=== PATIENT | male | born 1965 | race Caucasian/White ===

== ENCOUNTER → 2018-05-07 | Day surgery (SDC) | payer BC ==
[~2018-05-07] MED LIST: Acetaminophen/oxyCODONE 325-5 MG Tab PO PRN; Bupivacaine 0.5% 30 ML SDV ONE; Dexamethasone 4 MG/ML 5 ML MDV ONE; Glycopyrrolate 0.2 MG/ML SDV ONE; Lactated Ringers 1,000 ML IV SCH; Midazolam 1 MG/ML 2 ML SDV ONE; Neostigmine Methylsulfate 1 MG/ML 5 ML Syringe ONE; Octyl 2-Cyanoacrylate 1 Tube ONE; Ondansetron 4 MG/2 ML SDV ONE; Propofol 200 MG/20 ML SDV ONE; Rocuronium 10 MG/ML 10 ML Syringe ONE; Sodium Chloride 0.9% 10 ML Syringe FLUSH PRN; Sodium Chloride 0.9% 2.5 ML Syringe FLUSH PRN; Sodium Chloride 0.9% 20 ML ONE; Succinylcholine 200 MG/10 ML MDV ONE; ceFAZolin 1 GM Vial ONE; ceFAZolin 2 GM in Premix Bag 1 BAG IV ONE; ceFAZolin/Dextrose,Iso-Osmotic 2 GM/50 ML Duplex Bag IV ONE; ePHEDrine 50 MG/ML SDV ONE; fentaNYL 100 MCG/2 ML SDV IVPUSH PRN; fentaNYL 250 MCG/5 ML SDV ONE
--- NOTE | 2018-05-07 07:37 | PCM.PREANE ---
Preanesthetic Assessment - Anesthesia/Transfusion/Family Hx Anesthesia History: Prior Anesthesia Without Reaction Other Type of Anesthesia Reaction Comment: "mother had hard time coming out of anesthesia" Family History of Anesthesia Reaction: No Transfusion History: No Prior Transfusion(s) - Review of Systems General: No Symptoms Pulmonary: No Symptoms Cardiovascular: No Symptoms Gastrointestinal: No Symptoms Neurological: No Symptoms Other: Reports: None - Physical Assessment NPO Status Date: 05/06/18 Weight: 126.552 kg ASA Class: 2 Mental Status: Alert & Oriented x3 Airway Class: Mallampati = 1 Dentition: Reports: Normal Dentition, Partial (lower) ROM/Head Extension: Full Lungs: Clear to Auscultation, Normal Respiratory Effort Cardiovascular: Regular Rate, Regular Rhythm - Allergies Allergies/Adverse Reactions: Allergies Allergy/AdvReac Type Severity Reaction Status Date / Time No Known Allergies Allergy Verified 05/04/18 14:40 - Blood Blood Available: No - Anesthesia Plan Pre-Op Medication Ordered: None - Acknowledgements Anesthesia Type Planned: General Anesthesia Pt an Appropriate Candidate for the Planned Anesthesia: Yes Alternatives and Risks of Anesthesia Discussed w Pt/Guardian: Yes Pt/Guardian Understands and Agrees with Anesthesia Plan: Yes PreAnesthesia Questionnaire HEENT History: Reports: Other (See Below) Other HEENT History: wears glasses/contact Cardiovascular History: Reports: High Cholesterol, Hypertension Respiratory History: Reports: Sleep Apnea Other Respiratory History: uses CPAP Gastrointestinal History: Reports: GERD Musculoskeletal History: Reports: Fracture Other Musculoskeletal History: hx fx ankle Neurological History: Reports: None Endocrine/Metabolic History: Reports: Diabetes, Type II, Obesity/BMI 30+ - Past Surgical History Head Surgeries/Procedures: Reports: None Neurological Surgical History: Reports: Lumbar Spine Other Neurological Surgeries/Procedures: hx back surgery for ruptured disc - SUBSTANCE USE Smoking Status *Q: Current Every Day Smoker Tobacco Use Within Last Twelve Months: Cigarettes Days Per Week of Alcohol Use: 7 Number of Drinks Per Day: 3 Total Drinks Per Week: 21 Recreational Drug Use History: No - HOME MEDS Home Medications: Home Meds Omeprazole 1 tab PO DAILY 10/07/15 [History] Aspirin [[place] Aspirin] 81 mg PO DAILY 05/04/18 [History] Canagliflozin/Metformin HCl [Invokamet 150-1,000 mg Tablet] 1 tab PO BID [History] Diclofenac Potassium [Zipsor] 50 mg PO ASDIRECTED PRN 05/04/18 [History] Enalapril Maleate 20 mg PO DAILY 05/04/18 [History] Fenofibrate Nanocrystallized [Fenofibrate] 145 mg PO DAILY 05/04/18 [History] atorvaSTATin Calcium [Atorvastatin Calcium] 80 mg PO BEDTIME 05/04/18 [History] - CURRENT (IN HOUSE) MEDS Current Meds: Current Medications Lactated Ringer's (Ringers, Lactated) 1,000 mls @ 125 mls/hr IV ASDIRECTED NELY Sodium Chloride (Saline Flush) 10 ml FLUSH ASDIRECTED PRN PRN Reason: Keep Vein Open Sodium Chloride (Saline Flush) 2.5 ml FLUSH ASDIRECTED PRN PRN Reason: Keep Vein Open Discontinued Medications Bupivacaine HCl (Marcaine 0.5%) Confirm Administered Dose 30 ml .ROUTE .STK-MED ONE Stop: 05/07/18 07:19 Cefazolin Sodium (Ancef) Confirm Administered Dose 1 gm .ROUTE .STK-MED ONE Stop: 05/07/18 07:18 Cefazolin Sodium/Dextrose (Ancef) Confirm Administered Dose 2 gm IV .STK-MED ONE Stop: 05/07/18 07:09 Dexamethasone (Dexamethasone) Confirm Administered Dose 20 mg .ROUTE .STK-MED ONE Stop: 05/07/18 06:56 Fentanyl (Sublimaze) Confirm Administered Dose 250 mcg .ROUTE .STK-MED ONE Stop: 05/07/18 06:53 Cefazolin Sodium/Dextrose 2 gm (/ Premix) 50 mls @ 100 mls/hr IV ONETIME ONE Stop: 05/06/18 13:45 Lidocaine HCl (Xylocaine-Mpf 1%) Confirm Administered Dose 5 mls @ as directed .ROUTE .STK-MED ONE Stop: 05/07/18 06:56 Midazolam HCl (Versed 1 Mg/Ml) Confirm Administered Dose 2 mg .ROUTE .STK-MED ONE Stop: 05/07/18 06:53 Ondansetron HCl (Zofran) Confirm Administered Dose 4 mg .ROUTE .STK-MED ONE Stop: 05/07/18 06:56 Propofol (Diprivan 20 Ml) Confirm Administered Dose 200 mg .ROUTE .STK-MED ONE Stop: 05/07/18 06:53 Rocuronium [place] (Zemuron) Confirm Administered Dose 100 mg .ROUTE .STK-MED ONE Stop: 05/07/18 06:57 Succinylcholine Chloride (Quelicin) Confirm Administered Dose 200 mg .ROUTE .STK -MED ONE Stop: 05/07/18 06:57
--- NOTE | 2018-05-07 09:53 | PCM.POSTAN ---
POST ANESTHESIA ASSESSMENT - MENTAL STATUS Mental Status: Somnolent - RESPIRATORY Respiratory Status: Respiratory Rate WNL, Airway Patent, O2 Saturation Stable - CARDIOVASCULAR CV Status: Pulse Rate WNL, Blood Pressure Stable - GASTROINTESTINAL GI Status: No Symptoms - POST OP HYDRATION Hydration Status: Adequate & Stable - OBSERVATIONS Free Text/Narrative:: no obstructive sx on mask O2
--- NOTE | 2018-05-07 09:54 | PCM.OPNOTE ---
- General Post-Op/Procedure Note Date of Surgery/Procedure: 05/07/18 Operative Procedure(s): Umbilical hernia repair with mesh, excision umbilical skin lesion Findings: 2 cm fascial defect just left of the umbilical stalk, 1 cm skin lesion above the umbilical stalk Pre Op Diagnosis: Umbilical hernia, umbilical skin lesion Post-Op Diagnosis: same Anesthesia Technique: General LMA Primary Surgeon: Kathleen Antonio EBL in mLs: 10 Condition: Good
--- NOTE | 2018-05-07 11:04 | PCM48HPAN ---
Post Anesthesia Note - EVALUATION WITHIN 48HRS OF ANESTHETIC Vital Signs in Normal Range: Yes Patient Participated in Evaluation: Yes Respiratory Function Stable: Yes Airway Patent: Yes Cardiovascular Function Stable: Yes Hydration Status Stable: Yes Pain Control Satisfactory: Yes Nausea and Vomiting Control Satisfactory: Yes Mental Status Recovered: Yes Resp Rate: 16 - COMMENTS/OBSERVATIONS Free Text/Narrative:: discussed the importance of using cpap next 4 days. SERGO discharge instructions given
[2018-05-07 11:57] VITALS: BP 146/76
--- NOTE | 2018-05-07 16:51 | OR ---
SURGEON: ANIRUDH DOUGLAS MD DATE OF PROCEDURE: 05/07/2018 PREOPERATIVE DIAGNOSES: Umbilical hernia, umbilical skin tag. POSTOPERATIVE DIAGNOSES: Umbilical hernia, umbilical skin tag. PROCEDURES PERFORMED: Umbilical hernia repair with mesh, umbilical skin tag excision. ANESTHESIA: General LMA. FLUIDS: See anesthesia record. ESTIMATED BLOOD LOSS: 10 mL. PATHOLOGY: Hernia sac, umbilical skin tag. FINDINGS: A 2 cm fascial defect just to the left of the umbilical stalk. Hernia sac contained omentum. Approximately 1 cm umbilical skin tag. COMPLICATIONS: None. INDICATIONS: The patient is a 52-year-old male, who presents with an increasing and painful umbilical hernia. A CT scan of the abdomen showed a paraumbilical hernia containing omentum. The patient also has an umbilical skin lesion that has been present since that he would like to be removed. We discussed the pathophysiology of abdominal wall hernias. I explained to them that I may repair this primarily or with mesh depending on the size of his fascial defect. I explained the expected perioperative course as well as the risks including bleeding, infection, or damage to surrounding structures. I explained that with his smoking and diabetes, he has had increased risk of wound infection. I encouraged him to stop smoking. The patient's diabetes is under good control and given that this is symptomatic and needs to be repaired. The patient verbalized understanding and wishes to proceed. PROCEDURE IN DETAIL: The patient was brought to the OR and placed on the OR table in supine position. A time-out was completed verifying the patient's name, age, date of , allergies, and procedure to be performed. General LMA anesthesia was induced. The abdomen was prepped and draped in usual sterile fashion. The skin overlying the umbilical hernia was anesthetized with 0.5% Marcaine plain. An incision was made using a 15 blade over the top of the umbilical hernia. Cautery was used to dissect down to the level of the subcutaneous fat. I immediately encountered a large hernia sac. This was dissected free of the surrounding tissues using a Metzenbaum scissors. This dissection was carried down to the level of the fascia. I then cleared away all attachments of the hernia sac to the surrounding fascia. The hernia sac was entered and found to contain omentum. This omentum was adhered up to the hernia sac itself. The hernia sac was then excised using Metzenbaum scissors and passed off the field, labeled as hernia sac. The omentum was able to be reduced into the abdomen. The fascial defect measured 2 cm in size. The decision was made to repair this hernia with mesh. A 4.3 cm Ventralex hernia patch was brought into the field. In order to place this as an underlay, I had to sharply incise adhesions of the omentum to the underside of the fascia. Once this was adequately cleared away, I inspected my underlying tissues. No damage to the surrounding bowel was noted and the omentum appeared to be hemostatic. The mesh was then placed under the abdominal fascia and secured circumferentially with 0 Ethibond sutures. These were placed carefully to avoid incorporating any underlying omentum in the repair. Once the mesh was secured in place, I then closed the fascial defect with interrupted 0 Ethibond sutures to close tissue over the top of the mesh. I then anesthetized the fascia with 0.5% Marcaine plain. Given the size of the hernia sac, there was some redundant skin overlying the umbilicus. I sharply excised the redundant skin to allow for better closure. The subcutaneous fat was then closed with interrupted 3-0 Vicryl sutures. The skin was closed with a running 4-0 Monocryl stitch. I then turned my attention to the umbilical skin tag. This was excised sharply using a 15 blade, so that it was flush with the remainder of the umbilical tissue. I attempted to close this with 4-0 Monocryl, but was unable to close it adequately. Decision was made to use 4-0 Ethilon suture in interrupted fashion to close the defect. Four of these were placed and the wound edges were well approximated. The hernia incision was covered with Dermabond and sterile dressings were applied. The patient tolerated the procedure well and was taken to PACU in stable condition. JOELLEN MAKI /[id number] CHRISTINA
== END | disposition home or self-care (01) ==
LOC: MW.SDS 06:32
PROVIDERS: ATTEND Surgery
DX: K42.9 Umbilical hernia without obstruction or gangrene (principal); L91.8 Other hypertrophic disorders of the skin; I10 Essential (primary) hypertension; J03.90 Acute tonsillitis, unspecified; E11.9 Type 2 diabetes mellitus without complications; E78.00 Pure hypercholesterolemia, unspecified; E78.5 Hyperlipidemia, unspecified; E66.9 Obesity, unspecified; Z68.38 Body mass index [BMI] 38.0-38.9, adult; Z99.89 Dependence on other enabling machines and devices; G47.30 Sleep apnea, unspecified; F17.210 Nicotine dependence, cigarettes, uncomplicated; Z79.82 Long term (current) use of aspirin; Z79.899 Other long term (current) drug therapy
CPT/HCPCS: 49585; 82962; A9270; J0330; J0690; J1100; J2250; J2405; J3010; J7120; J2704

== ENCOUNTER 2021-10-22 10:38 | Emergency (ER) | payer OTHER ==
[2021-10-22] MEDS ORDERED: Ketorolac 15 MG/ML SDV IM ONE (10:50)
--- NOTE | 2021-10-22 11:12 | PCM.EKG ---
#1 Interpretation EKG Date: 10/22/21 Time: 11:05 Rhythm: NSR Rate (Beats/Min): 88 [place]: Normal P-Wave: Present QRS: Other (RBBB LAFB) ST-T: Normal QT: Normal Comparison: NA - No Prior EKG EKG Interpretation Comments: Sinus Rhythm with RBBB and LAFB
[2021-10-22 11:29] LABS: CORONAVIRUS COVID-19 NAA NEGATIVE (NEGATIVE); INFLUENZA A NAA NEGATIVE (NEGATIVE); INFLUENZA B NAA NEGATIVE (NEGATIVE)
[2021-10-22] MEDS ORDERED: Albuterol/Ipratropium 3.0-0.5 MG/3 ML Neb Soln NEB ONE (11:35)
[2021-10-22] MEDS ORDERED: predniSONE 20 MG Tab PO ONE (11:36)
--- NOTE | 2021-10-22 12:07 | CR ---
INDICATION: Shortness of breath. TECHNIQUE: Portable upright AP view of the chest. COMPARISON: 06/03/2012. FINDINGS: Heart size is normal. Pulmonary vasculature is unremarkable. Lungs are grossly clear. No appreciable pleural fluid on this single view study. No pneumothorax. IMPRESSION: No radiographic signs of acute thoracic disease. Dictated by Noah Kevin MD @ 10/22/2021 12:07:01 PM Dictated by: Noah Kevin MD @ 10/22/2021 12:07:06 (Electronically Signed)
--- NOTE | 2021-10-22 12:23 | EDM.PDOC ---
ED HPI GENERAL MEDICAL PROBLEM - General Chief Complaint: Respiratory Problem Stated Complaint: SHORTNESS OF BREATHE,COUGH Time Seen by Provider: 10/22/21 10:42 - History of Present Illness INITIAL COMMENTS - FREE TEXT/NARRATIVE: CHIEF COMPLAINT(S): Cough HISTORY OF PRESENT ILLNESS: This is a 55-year-old man with a past medical history of GERD, hyperlipidemia, tobacco use disorder who comes to the emergency department with a chief complaint of cough. Patient states that he is presenting to the emergency department for a cough. He states that it has been going on for the last couple of weeks. He states that he had fevers and chills, body aches all of which have resolved but he has this nagging cough that does not resolve. He states it is productive of sputum but denies any fever or chills. He denies any history of COPD or asthma. He states he has has a history of bronchitis and does have an albuterol treatment at home. He has not yet tried 1 of those. He states that he is not vaccinated. He denies any chest pain, lower extremity edema, recent travel, recent surgery or prior history of DVT or PE. REVIEW OF SYSTEMS: Constitutional: Denies fever, chills. Eyes: Denies eye pain Ears, Nose, Mouth, & Throat: Denies earache Cardiovascular: Denies chest pain Respiratory: Positive for cough which is productive. Denies shortness of breath Gastrointestinal: Denies Nausea, vomiting, diarrhea, hematochezia. Genitourinary: Denies hematuria Skin:Denies a rash MSK: Denies joint pain Neurological: Denies blurred vision Psychiatric: Denies depression PAST MEDICAL HISTORY: As per history of present illness and as reviewed below otherwise noncontributory. SURGICAL HISTORY: As per history of present illness and as reviewed below otherwise noncontributory. SOCIAL HISTORY: As per history of present illness and as reviewed below otherwise noncontributory. FAMILY HISTORY: As per history of present illness and as reviewed below otherwise noncontributory. EXAMINATION OF ORGAN SYSTEMS/BODY AREAS: Constitutional: Blood pressure was 185/105, heart rate 96, respiratory rate 28 with an oxygen saturation 95% on room air. Temperature 36.4 General: Middle-aged man who does not appear to be in acute distress Psychiatric: Appropriate mood and affect. Eyes: No scleral icterus or conjunctival erythema ENMT: Moist mucous membranes. No pharyngeal erythema Cardiovascular: Regular, rate, and rhythm. No gallops, murmurs, or rubs. Bilateral upper extremity pulses symmetric and intact. No peripheral edema. No JVD. Respiratory: Patient is speaking in full sentences. The patient has bilateral expiratory wheezing. No crackles or rhonchi. Gastrointestinal: Soft, non-tender, non-distended. Normoactive bowel sounds Genitourinary: No suprapubic tenderness Musculoskeletal: Normal range of motion. Skin: No lesions or abrasions. Neurological: Alert, GCS 15 MEDICAL DECISION MAKING AND COURSE IN THE ED WITH INTERPRETATION/REVIEW OF DIAGNOSTIC STUDIES: This is a 55-year-old man with a past medical history of diabetes, hypertension and tobacco use disorder who comes to the emergency department with 1 and half weeks of cough who has wheezing on examination who is afebrile and saturating appropriately. I do believe there is likely an underlying COPD component. We will provide the patient with a DuoNeb treatment and 1 tablet of prednisone. Will obtain a chest x-ray, Covid, and influenza sw ab. I do not believe any other labs or imaging are indicated. We will reevaluate after DuoNeb treatment. The radiological images were viewed by myself along with reading the report from the radiologist. Chest x-ray does not reveal any acute cardiopulmonary process. Laboratory: Covid and influenza. On reevaluation patient reported symptomatic improvement after DuoNeb treatment and his wheezing had resolved. At this time I did discuss that I be providing him with prednisone by mouth and an albuterol inhaler. He is to use this at home for wheezing and shortness of breath. He was given strict return precautions. The patient was amenable to discharge and had no further questions. DISPOSITION: The patient was discharged home in stable condition. The patient will follow up with primary care physician in 3 to 5 days CONDITION: Fair PROCEDURES: None FINAL IMPRESSION(S)/DIAGNOSES: 1. Acute wheezing likely secondary to undiagnosed COPD Antony Greenberg M.D. body Pain Score (Numeric/FACES): 2 - Related Data Allergies Allergy/AdvReac Type Severity Reaction Status Date / Time No Known Allergies Allergy Verified 10/22/21 10:47 Home Meds: Home Meds Omeprazole 1 tab PO DAILY 10/07/15 [History] Aspirin [[place] Aspirin EC] 81 mg PO DAILY 05/04/18 [History] Canagliflozin/Metformin HCl [Invokamet 150-1,000 mg Tablet] 1 tab PO BID 05/04/18 [History] Diclofenac Potassium [Zipsor] 50 mg PO ASDIRECTED PRN 05/04/18 [History] Enalapril Maleate 20 mg PO DAILY 05/04/18 [History] Fenofibrate Nanocrystallized [Fenofibrate] 145 mg PO DAILY 05/04/18 [History] atorvaSTATin Calcium [Atorvastatin Calcium] 80 mg PO BEDTIME 05/04/18 [History] Cyclobenzaprine [Flexeril] 10 mg PO BID PRN #20 tab 05/07/18 [Rx] Albuterol Sulfate [Proair Hfa] 8.5 gm IH Q4H PRN #1 hfa.aer.ad 10/22/21 [Rx] predniSONE [Prednisone] 50 mg PO DAILY #5 tablet 10/22/21 [Rx] Past Medical History HEENT History: Reports: Other (See Below) Other HEENT History: wears glasses/contact Cardiovascular History: Reports: High Cholesterol, Hypertension Respiratory History: Reports: Sleep Apnea Other Respiratory History: uses CPAP Gastrointestinal History: Reports: GERD Musculoskeletal History: Reports: Fracture Other Musculoskeletal History: hx fx ankle Neurological History: Reports: None Endocrine/Metabolic History: Reports: Diabetes, Type II, Obesity/BMI 30+ - Infectious Disease History Infectious Disease History: Reports: Chicken Pox - Past Surgical History Head Surgeries/Procedures: Reports: None GI Surgical History: Reports: Hernia, Abdominal Neurological Surgical History: Reports: Lumbar Spine Other Neurological Surgeries/Procedures: hx back surgery for ruptured disc Social & Family History - Family History Family Medical History: No Pertinent Family History - Tobacco Use Tobacco Use Status *Q: Current Every Day Tobacco User Years of Tobacco use: 30 Packs/Tins Daily: 1.5 - Caffeine Use Caffeine Use: Reports: Coffee - Alcohol Use Days Per Week of Alcohol Use: 5 Number of Drinks Per Day: 2 Total Drinks Per Week: 10 - Recreational Drug Use Recreational Drug Use: No ED ROS GENERAL - Review of Systems Review Of Systems: See Below ED EXAM, GENERAL - Physical Exam Exam: See Below Course - Vital Signs Last Recorded V/S: Last Vital Signs Temp 36.4 C 10/22/21 10:44 Pulse 91 10/22/21 16:36 Resp 18 10/22/21 16:36 BP 172/100 H 10/22/21 16:36 Pulse Ox 96 10/22/21 16:36 - Orders/Labs/Meds Labs: Laboratory Tests 10/22/21 Range/Units 10:20 Influenza Type A RNA NEGATIVE (NEGATIVE) Influenza Type B RNA NEGATIVE (NEGATIVE) SARS-CoV-2 RNA (FRANCISCA) NEGATIVE (NEGATIVE) Meds: Medications Discontinued Medications Generic Name Dose Route Start Last Admin Trade Name Freq PRN Reason Stop Dose Admin Albuterol/Ipratropium 3 ml 10/22/21 11:35 10/22/21 12:00 Albuterol/Ipratropium 3.0-0.5 Mg/3 Ml Neb Soln NEB 10/22/21 11:36 3 ml ONETIME ONE Administration Ketorolac Tromethamine 30 mg 10/22/21 10:50 10/22/21 11:14 Ketorolac 15 Mg/Ml Sdv IM 10/22/21 10:51 30 mg ONETIME ONE Administration Prednisone 60 mg 10/22/21 11:36 10/22/21 12:07 Prednisone 20 Mg Tab PO 10/22/21 11:37 60 mg ONETIME ONE Administration Departure - Departure Time of Disposition: 12:22 Disposition: Home, Self-Care 01 Condition: Fair Clinical Impression: Bronchitis - Discharge Information *PRESCRIPTION DRUG MONITORING PROGRAM REVIEWED*: No *COPY OF PRESCRIPTION DRUG MONITORING REPORT IN PATIENT DANIEL: No Prescriptions: predniSONE [Prednisone] 50 mg PO DAILY #5 tablet Albuterol Sulfate [Proair Hfa] 8.5 gm IH Q4H PRN #1 hfa.aer.ad PRN Reason: Wheezing Instructions: Acute Bronchitis, Adult Referrals: Daniele Ramirez MD [Primary Care Provider] - Forms: ED Department Discharge Additional Instructions: You were evaluated today on an emergent basis. At this time your x-ray your Covid and your influenza were all negative. I do believe you are experiencing bronchitis. Please use the albuterol inhaler 2 puffs every 4 hours for the next few days and then as needed after that. Also take the prednisone that I prescribed you daily for the next 5 days. If you have any worsening symptoms such as worsening shortness of breath, chest pain I would like you to return to the emergency department. Please follow-up with primary care in 3 to 5 days [facility] [address] [place] [address] [id number] [id number] The patient is informed of any results of their evaluation and diagnostic workup and all questions are answered. They are given discharge instructions and return precautions. The patient is stable for discharge. The patient states they understand and agree with the plan and that they will return if their symptoms get worse or if they have any new concerns. The following information is given to patients seen in the emergency department who are being discharged to home. This information is to outline your options for follow-up care. We provide all patients seen in our emergency department with a follow-up referral. The need for follow-up, as well as the timing and circumstances, are variable depending upon the specifics of your emergency department visit. If you don't have a primary care physician on staff, we will provide you with a referral. We always advise you to contact your personal physician following an emergency department visit to inform them of the circumstance of the visit and for follow-up with them and/or the need for any referrals to a consulting specialist. The emergency department will also refer you to a specialist when appropriate. This referral assures that you have the opportunity for follow-up care with a specialist. All of these measure are taken in an effort to provide you with optimal care, which includes your follow-up. Under all circumstances we always encourage you to contact your private physician who remains a resource for coordinating your care. When calling for f ollow-up care, please make the office aware that this follow-up is from your recent emergency room visit. If for any reason you are refused follow-up, please contact the [facility] Emergency Department at and asked to speak to the emergency department charge nurse. Sepsis Event Note (ED) - Evaluation Sepsis Screening Result: No Definite Risk
[2021-10-22 16:37] VITALS: BP 172/100; PULSE 91
== END 2021-10-22 12:54 | disposition home or self-care (01) ==
LOC: MW.ED 10:38
DX: J40 Bronchitis, not specified as acute or chronic (principal); E78.00 Pure hypercholesterolemia, unspecified; I10 Essential (primary) hypertension; K21.9 Gastro-esophageal reflux disease without esophagitis; E11.9 Type 2 diabetes mellitus without complications; E66.9 Obesity, unspecified; Z68.41 Body mass index [BMI] 40.0-44.9, adult; Z72.0 Tobacco use; Z79.82 Long term (current) use of aspirin; Z79.899 Other long term (current) drug therapy; Z20.822 Contact with and (suspected) exposure to COVID-19
CPT/HCPCS: 0240U; 71045; 94640; 96372; 99284; A9270; J1885; J7620-GY

== ENCOUNTER 2024-02-14 19:14 | Emergency (ER) | payer SELFPAY ==
[2024-02-14] MEDS: Sodium Chloride 0.9% 10 ML Syringe FLUSH PRN (19:35)
[2024-02-14] MEDS: Albuterol/Ipratropium 3.0-0.5 MG/3 ML Neb Soln NEB ONE (19:35)
[2024-02-14] MEDS: Ondansetron 4 MG/2 ML SDV IVPUSH ONE (19:35)
[2024-02-14] MEDS: Sodium Chloride 0.9% 2.5 ML Syringe FLUSH PRN (19:35)
[2024-02-14] MEDS: Sodium Chloride 0.9% 1,000 ML IV ONE (19:36)
[2024-02-14] MEDS: Ketorolac 30 MG/ML SDV IVPUSH ONE (19:36)
[2024-02-14 19:41] LABS: BASOPHILS ABSOLUTE AUTO 0.01 K/uL (0.00-0.20); BASOPHILS PERCENT AUTO 0.2 % (0.0-1.0); EOSINOPHILS ABSOLUTE AUTO 0.01 K/uL (0.00-0.45); EOSINOPHILS PERCENT AUTO 0.2 % (0.0-6.0); HEMATOCRIT 47.4 % (42.0-52.0); HEMOGLOBIN 16.6 g/dL (14.0-18.0); IMMATURE GRAN ABSOLUTE AUTO 0.01 K/uL (0.00-0.05); IMMATURE GRAN PERCENT AUTO 0.2 % (0.0-0.4); LYMPHOCYTES ABSOLUTE AUTO 1.25 K/uL (1.00-4.80); LYMPHOCYTES PERCENT AUTO 20.7 % (24.0-44.0); MEAN CORPUSCULAR HEMOGLOBIN 34.2 pg (28.0-32.0); MEAN CORPUSCULAR VOLUME 97.7 fL (83.0-99.0); MEAN PLATELET VOLUME 8.7 fL (9.4-12.4); MONOCYTES ABSOLUTE AUTO 0.87 K/uL (0.00-0.80); MONOCYTES PERCENT AUTO 14.4 % (0.0-8.0); NEUTROPHILS ABSOLUTE AUTO 3.88 K/uL (1.80-7.70); NEUTROPHILS PERCENT AUTO 64.3 % (41.0-71.0); PLATELET COUNT,PLT 144 K/uL (150-400); RED BLOOD CELL COUNT 4.85 M/uL (4.52-5.90); WHITE BLOOD CELL COUNT,WBC 6.03 K/uL (3.9-11.3)
[2024-02-14] MEDS: Acetaminophen 500 MG Tab PO ONE (20:01)
[2024-02-14] MEDS: Albuterol 0.083% 2.5 MG/3 ML Neb Soln NEB ONE (20:01)
[2024-02-14] MEDS: cefTRIAXone 2 GM in Sodium Chloride 0.9% 50 ML IV ONE (20:04)
[2024-02-14 20:09] LABS: ALBUMIN 3.7 g/dL (3.4-5.0); BILIRUBIN TOTAL 0.5 mg/dL (0.2-1.0); CALCIUM 9.3 mg/dL (8.5-10.1); CARBON DIOXIDE,CO2 25.1 mmol/L (21.0-32.0); EST CRCL DRUG DOSING (CG) 89.46 mL/min; POTASSIUM,K 4.6 mmol/L (3.5-5.1); PROTEIN TOTAL,TP 7.5 g/dL (6.4-8.2)
[2024-02-14 20:14] LABS: CORONAVIRUS COVID-19 NAA NEGATIVE (NEGATIVE); INFLUENZA A NAA POSITIVE (NEGATIVE); INFLUENZA B NAA NEGATIVE (NEGATIVE); RESPIRATORY SYNCYTIAL VIR NAA NEGATIVE (NEGATIVE)
[2024-02-14 20:51] LABS: LACTIC ACID 1.1 mmol/L (0.4-2.0)
[2024-02-14] MEDS: Dexamethasone 4 MG Tab PO ONE (22:07)
[2024-02-14 22:16] VITALS: BP 124/65; PULSE 102
== END 2024-02-14 22:14 | disposition home or self-care (01) ==
LOC: MW.ED 19:14
DX: J44.0 Chronic obstructive pulmonary disease with (acute) lower respiratory infection (principal); J20.9 Acute bronchitis, unspecified; J18.9 Pneumonia, unspecified organism; I10 Essential (primary) hypertension; E78.00 Pure hypercholesterolemia, unspecified; E11.9 Type 2 diabetes mellitus without complications; K21.9 Gastro-esophageal reflux disease without esophagitis; Z79.899 Other long term (current) drug therapy; Z79.82 Long term (current) use of aspirin
CPT/HCPCS: 0241U; 36415; 71046; 80053; 83605; 83690; 83880; 84484; 85025; 85379; 87040; 87651; 93005; 96361; 96365; 96375; 99285; A9270; J0696; J1885; J2405; J3490; J7030; J8540; 93010; 99284; J7620-GY